=== PATIENT | male | born 1995 ===

== ENCOUNTER 2018-02-12 06:55 | Emergency (ER) | payer BC ==
[2018-02-12] MEDS ORDERED: Ketorolac Tromethamine 60 MG/2 ML VIAL ONE (07:14)
--- NOTE | 2018-02-12 07:59 | RAD ---
RADIOGRAPH CHEST FRONTAL VIEW: Date: 02/12/18 No prior comparison. INDICATION: Chest pain. FINDINGS: There is no evidence of consolidation, effusion, or discrete pneumothorax. No free air beneath the he midiaphragms. Cardiac silhouette is normal in size. IMPRESSION: No focal consolidation. POS: [id number]
== END 2018-02-12 07:42 | disposition home or self-care (01) ==
LOC: SCSER 06:55
DX: R07.89 Other chest pain (principal)
CPT/HCPCS: 71045; 93005; 96372; J1885